=== PATIENT | female | born 1990 | race Caucasian/White ===

== ENCOUNTER 2017-12-22 06:28 | Inpatient (IN) ==
[2017-12-22] MEDS ORDERED: ANCEF 1 GRAM IV PREMIX* 1 G/50 ML BAG IV ONE (06:32)
[2017-12-22] MEDS ORDERED: LR 1000 ML IV 1,000 ML IV ONE ×3 (06:32→07:43)
[2017-12-22] MEDS ORDERED: D5 1/2 NS 1000 ML 1,000 ML IV SCH (06:37)
[2017-12-22] MEDS ORDERED: ANCEF VIAL 1 GRAM IVP ONE (06:37)
[2017-12-22] MEDS ORDERED: DURAMORPH ONE (07:04)
[2017-12-22] MEDS ORDERED: D5 1/2 NS 1L W PITOCIN 20 UNITS/L 20 UNITS/1,000 ML BAG IV ONE (07:04)
[2017-12-22] MEDS ORDERED: MARCAINE SPINAL ONE (07:05)
[2017-12-22] MEDS ORDERED: XYLOCAINE-MPF 1% ONE (07:06)
[2017-12-22 08:23] LABS: BILIRUBIN,URINE NEGATIVE (NEGATIVE); BLOOD/HEMOGLOBIN,URINE 5+ (NEGATIVE); GLUCOSE, URINE NEGATIVE (NEGATIVE); KETONES,URINE 1+ (NEGATIVE); LEUKOCYTE ESTERASE ,URINE 1+ (NEGATIVE); NITRITES,URINE NEGATIVE (NEGATIVE); PROTEIN,URINE 3+ (NEGATIVE); UROBILINOGEN,URINE 1+ (NORMAL)
[2017-12-22 08:35] LABS: APPEARANCE,URINE HAZY (CLEAR); COLOR,URINE DARK YELLOW (YELLOW)
[2017-12-22 08:36] LABS: BACTERIA,URINE NEGATIVE /HPF (NEGATIVE); MUCUS,URINE FEW /HPF (NEGATIVE); SQUAMOUS EPITHELIAL CELL,UR MODERATE /HPF (NEGATIVE)
[2017-12-22] MEDS ORDERED: REGLAN INJ 10 MG VIAL IVP PRN ×2 (08:44→09:04)
[2017-12-22] MEDS ORDERED: BENADRYL INJ 50 MG VIAL IVP PRN ×2 (08:44→09:04)
[2017-12-22] MEDS ORDERED: PHENERGAN INJ 25 MG IVP PRN (08:44)
[2017-12-22] MEDS ORDERED: ZOFRAN INJ 4 MG VIAL IVP PRN ×2 (08:44→09:04)
[2017-12-22] MEDS ORDERED: TORADOL 30 MG VIAL IVP PRN (09:04)
[2017-12-22] MEDS ORDERED: D5 1/2 NS 1000 ML 1,000 ML with PITOCIN 20 UNITS IV SCH ×2 (09:04)
[2017-12-22] MEDS ORDERED: PERCOCET TAB 5/325 MG PO PRN (09:04)
[2017-12-22] MEDS ORDERED: MYLICON TAB 80 MG CHEW PO PRN (09:04)
[2017-12-22] MEDS ORDERED: NARCAN INJ IVP PRN (09:04)
[2017-12-22] MEDS ORDERED: ADACEL or BOOSTRIX TDaP VACCINE IM ONE (09:04)
[2017-12-22] MEDS: PRENATAL PLUS PO SCH (09:50)
[2017-12-22] MEDS: ZANTAC PO SCH ×2 (09:51→20:33)
[2017-12-22] MEDS ORDERED: VERSED ONE (11:23)
[2017-12-22] MEDS ORDERED: PITOCIN ONE (11:23)
[2017-12-22] MEDS ORDERED: DIPRIVAN VIAL ONE (11:23)
[2017-12-22] MEDS ORDERED: ZOFRAN INJ 4 MG VIAL ONE (11:23)
[2017-12-22] MEDS ORDERED: NEO-SYNEPHRINE INJ ONE (11:23)
[2017-12-22] MEDS ORDERED: EPHEDRINE SULFATE INJ ONE (11:23)
[2017-12-22] MEDS ORDERED: NS 1000 ML 1,000 ML IV ONE (13:57)
[2017-12-22 14:29] LABS: HEMOGLOBIN 8.5 g/dL (12.0-16.0)
[2017-12-22] MEDS ORDERED: D5 1/2 NS 1000 ML 1,000 ML IV ONE (15:00)
[2017-12-23 05:10] LABS: HEMOGLOBIN 8.2 g/dL (12.0-16.0)
[2017-12-23] MEDS ORDERED: PERCOCET TAB 5/325 MG PO PRN (06:16)
[2017-12-23] MEDS ORDERED: FERROUS GLUCONATE PO SCH (07:00)
[2017-12-23] MEDS: ZANTAC PO SCH ×2 (08:49→21:11)
[2017-12-23] MEDS: COLACE CAP 100 MG PO SCH ×2 (08:49→21:12)
[2017-12-23] MEDS: PRENATAL PLUS PO SCH (08:49)
[2017-12-23] MEDS: MOTRIN TAB 800 MG PO PRN ×2 (12:50→21:15)
[2017-12-23] MEDS: BACTROBAN CREAM TOP SCH ×2 (14:52→21:11)
[2017-12-24] MEDS: BACTROBAN CREAM TOP SCH (05:54)
[2017-12-24] MEDS: COLACE CAP 100 MG PO SCH (08:21)
[2017-12-24] MEDS: ZANTAC PO SCH (08:21)
[2017-12-24] MEDS: PRENATAL PLUS PO SCH (08:21)
[2017-12-24 09:00] VITALS: BP 121/58
== END 2017-12-24 11:00 | disposition home or self-care (01) | DRG 785 ==
LOC: LD 06:28 → MED/SURG 09:09
PROVIDERS: ADMIT Specialist; ATTEND Specialist
DX: Z23 Encounter for immunization; O99.013 Anemia complicating pregnancy, third trimester; B95.1 Streptococcus, group B, as the cause of diseases classified elsewhere; Z3A.39 39 weeks gestation of pregnancy; O99.824 Streptococcus B carrier state complicating childbirth; D50.8 Other iron deficiency anemias; O34.211 Maternal care for low transverse scar from previous cesarean delivery; N85.8 Other specified noninflammatory disorders of uterus; Z37.0 Single live birth; Z01.818 Encounter for other preprocedural examination
CPT/HCPCS: 36415; 80048; 81001; 85014; 85018; 85025; 85610; 85730; 86592; 86850; 86900; 86901; 87086; 90715; A4216; A4222; S0197; J0690; J1885; J2250; J2370; J2405; J2590; J2704; J2765; J3490; J7030; J7120; S5010